=== PATIENT | female | born 1955 | race Caucasian/White ===

== ENCOUNTER 2017-08-10 11:39 | Day surgery (SDC) | payer OTHER, BC ==
[~2017-08-10] VITALS: Ht 165.1 cm; Wt 96.6 kg
[~2017-08-10 11:39] MED LIST: ADDERALL20 MG PO; ADDERALL30 MG PO; ALPRAZOLAM0.5 MG PO; ALTACE10 MG PO; AMBIEN10 MG PO; AMPHETAMINE SAL20 MG PO; ASCORBIC ACID500 M3 PO; B COMPLETE1 EACH PO; B-12 PO; BACTRIM,SEPT1 TABLET PO; BIOTIN1000 MICRO PO; BIOTIN2500 MCG PO; BUTALB-APAP-CA1 EACH PO; BYSTOLIC10 MG PO; CALCIUM 500 WI1 EAC2 PO; CALCIUM 600 +1 EAC1 PO; CARVEDILOL12.5 MG PO; CEFTIN500 MG PO; CELEBREX200 MG PO; CELEXA40 MG PO; CIPRO500 MG PO; CYANOCOBALAM1000 MCG PO; CYMBALTA60 MG PO; D-BIOTIN5 G1 MC; DAILY VITAMIN1 EAC8 PO; DICLOFENAC SOD100 G1 TP; DRISDOL50000 UNIT PO; ENDOCET 10-3251 EACH PO; ERGOCALCIF50000 UNIT PO; GABAPENTIN600 MG PO; IRON 100 PLUS1 EACH PO; IRON55 MG PO; LEVAQUIN500 MG PO; LIPITOR40 MG PO; LISINOPRIL-HCT1 EAC3 PO; LOSARTAN POTAS100 MG PO; LYRICA225 MG PO; LYRICA300 MG PO; MULTIVITAMIN1 EAC2 PO; MYRBETRIQ50 MG PO; NEURONTIN600 MG PO; OLANZAPINE10 MG PO; OMEPRAZOLE40 M1 PO; OXYCODONE HCL10 MG PO; OXYCODONE-APAP1 EACH PO; PERCOCET 10/1 TABLET PO; PLAVIX75 MG PO; PRILOSEC10 MG PO; PRILOSEC20 MG PO; RESTORIL30 MG PO; ROXICODONE15 MG PO; TIZANIDINE HCL4 MG PO; TOPAMAX100 MG PO; TOPAMAX200 MG PO; TOPIRAMATE100 MG PO; TRIAZOLAM0.25 MG PO; VENTOLIN HFA18 GM IH; VIIBRYD10 MG PO; VIIBRYD40 MG PO; VITAMIN B-122000 MCG PO; VITAMIN B12; VITAMIN B122500 MCG PO; VITAMIN D PO; VITAMIN D1000 UNIT PO; VITAMIN D10000 UNIT PO; VITAMIN D31000 UNI2 PO; VITAMIN D400 UNI1 PO; WELLBUTRIN SR100 MG PO; WELLBUTRIN SR150 MG PO; XANAX0.5 MG PO; ZOCOR40 MG PO; Zestril,Prinivil PO
[2017-08-10 12:14] VITALS: BP 132/65
[2017-08-10 12:22] LABS: INTER. NORMALIZED RATIO 1.1
[2017-08-10 17:40] VITALS: BP 189/81
[2017-08-10 18:15] VITALS: BP 127/59
[2017-08-10 18:40] VITALS: BP 130/59
== END 2017-08-10 19:00 | disposition home or self-care (01) ==
LOC: SDC 11:39
PROVIDERS: Orthopaedic Surgery
PROC: 0QSD04Z Reposition Right Patella with Internal Fixation Device, Open Approach (ICD-10-PCS; principal; 2017-08-10)
DX: S82.041A Displaced comminuted fracture of right patella, initial encounter for closed fracture (principal); W10.1XXA Fall (on)(from) sidewalk curb, initial encounter; Y93.01 Activity, walking, marching and hiking; Y92.480 Sidewalk as the place of occurrence of the external cause; I10 Essential (primary) hypertension; I25.10 Atherosclerotic heart disease of native coronary artery without angina pectoris; E11.9 Type 2 diabetes mellitus without complications; K21.9 Gastro-esophageal reflux disease without esophagitis; Z79.02 Long term (current) use of antithrombotics/antiplatelets; G40.909 Epilepsy, unspecified, not intractable, without status epilepticus; F41.8 Other specified anxiety disorders; Z95.1 Presence of aortocoronary bypass graft; Z87.891 Personal history of nicotine dependence; Z88.2 Allergy status to sulfonamides; Z88.6 Allergy status to analgesic agent; Z88.8 Allergy status to other drugs, medicaments and biological substances
CPT/HCPCS: 73560; 76000; 85610; 87641; C1713; J0131; J0330; J0690; J1100; J1170; J2250; J2405; J2795; J3010

== ENCOUNTER 2017-08-13 16:58 | Emergency (ER) | payer OTHER, BC ==
[~2017-08-13] VITALS: Ht 165.1 cm; Wt 100.0 kg
[2017-08-13 17:41] LABS: HEMATOCRIT 34.9 % (36.0-46.0); HEMOGLOBIN 11.9 G/DL (11.9-15.5); MCH 33.3 PG (29.0-34.0); MCHC 34.1 G/DL (30.0-36.0); MCV 97.8 FL (83-99); RBC DIS.WIDTH-CV 13.1 % (11.8-14.6); RBC DIS.WIDTH-SD 46.8 % (39-53); RED BLOOD COUNT 3.57 M/uL (3.80-5.20); WHITE BLOOD COUNT 12.9 K/uL (4.1-10.2)
[2017-08-13 17:44] LABS: PLATELET COUNT 338 K/uL (156-360)
[2017-08-13 17:49] LABS: ALBUMIN 3.9 g/dL (3.2-4.8); CHLORIDE 100 mEq/L (99-109); POTASSIUM 4.5 mEq/L (3.7-5.4)
[2017-08-13 17:51] LABS: GLUCOSE 269 mg/dL (70-99); SODIUM 133 mEq/L (136-147); TOTAL PROTEIN 7.7 g/dL (6.4-8.3)
[2017-08-13 17:53] LABS: TOTAL BILIRUBIN 0.6 mg/dL (0.0-1.0)
[2017-08-13 17:55] LABS: ALKALINE PHOSPHATASE 90 IU/L (3-129); GFR ESTIMATE (CALCULATED) 28 mL/min/
[2017-08-13 17:56] LABS: UREA NITROGEN (BUN) 24 mg/dL (9-23)
[2017-08-13 17:57] LABS: AST (GOT) 19 IU/L (2-34)
[2017-08-13 17:58] LABS: ALT (GPT) 10 IU/L (3-49)
[2017-08-13 18:23] LABS: CREATININE 1.9 mg/dL (0.6-1.3)
[2017-08-13 18:28] LABS: TROP-I INTERPRETATION NEGATIVE; TROPONIN-I 0.03 ng/mL (0.0-0.30)
[2017-08-13 20:28] LABS: APPEARANCE CLOUDY ((CLEAR)); BILIRUBIN SMALL; BLOOD NEGATIVE; COLOR AMBER ((YELLOW)); GLUCOSE (STRIP) NEGATIVE; KETONES 5; LEUKOCYTES TRACE; NITRITE NEGATIVE; PROTEIN (STRIP) 30; SPECIFIC GRAVITY 1.027 (1.000-1.030)
[2017-08-13 20:35] LABS: EPITHELIAL CELLS NONE SEEN /HPF; RED BLOOD CELLS 0-5 /HPF (0-5); WHITE BLOOD CELLS 0-5 /HPF (0-5)
[2017-08-13 20:36] LABS: AMORPHOUS URATES CRYSTALS 1+; BACTERIA 1+ /HPF; MUCUS NONE SEEN /LPF; UCUL ADDED? NO
[2017-08-13] MEDS ORDERED: DIOVAN HCT 81 TABLET PO (21:11)
[2017-08-13] MEDS ORDERED: TYLENOL ARTHRI650 MG PO (21:12)
[2017-08-13] MEDS ORDERED: FIORICET 50-301 EAC1 PO (21:13)
[2017-08-13 21:38] LABS: CREATINE KINASE 36 IU/L (1-294)
[2017-08-13 22:22] LABS: TROP-I INTERPRETATION NEGATIVE; TROPONIN-I 0.01 ng/mL (0.0-0.30)
[2017-08-13 23:05] LABS: CREATININE 1.6 MG/DL (0.6-1.3)
[2017-08-13] MEDS ORDERED: KEFLEX500 MG PO (23:15)
[2017-08-13 23:52] VITALS: BP 118/70
== END 2017-08-13 23:53 | disposition home or self-care (01) ==
LOC: EME 16:58
PROVIDERS: Nurse Practitioner Family
DX: I95.2 Hypotension due to drugs (principal); R51 Headache; T46.5X5A Adverse effect of other antihypertensive drugs, initial encounter; T50.2X5A Adverse effect of carbonic-anhydrase inhibitors, benzothiadiazides and other diuretics, initial encounter; N39.0 Urinary tract infection, site not specified; Z98.890 Other specified postprocedural states; I10 Essential (primary) hypertension; E11.9 Type 2 diabetes mellitus without complications; E78.5 Hyperlipidemia, unspecified; K21.9 Gastro-esophageal reflux disease without esophagitis; F41.9 Anxiety disorder, unspecified; G43.909 Migraine, unspecified, not intractable, without status migrainosus; R56.9 Unspecified convulsions; F32.9 Major depressive disorder, single episode, unspecified; Z87.891 Personal history of nicotine dependence; Z87.442 Personal history of urinary calculi; Z95.1 Presence of aortocoronary bypass graft; Z98.84 Bariatric surgery status; Z88.2 Allergy status to sulfonamides; Z88.6 Allergy status to analgesic agent; Z88.8 Allergy status to other drugs, medicaments and biological substances
CPT/HCPCS: 70450; 80053; 81003; 82550 91; 82565; 84484; 84520; 85027; 87086; 93005; 99281; 99284; J0696; J7030